=== PATIENT | female | born 1990 | race Caucasian/White ===

== ENCOUNTER 2016-10-18 20:56 | Emergency (ER) | payer OTHER ==
[2016-10-19] MEDS ORDERED: ACETAMINOPHEN 325 MG TABLET ONE
[2016-10-19] MEDS ORDERED: IBUPROFEN 600 MG TABLET ONE
[2016-10-19] MEDS ORDERED: DIPHTH,PERTUSS(ACELL),TET VAC 0.5 ML VIAL IM V ONE
--- NOTE | 2016-10-19 08:15 | RAD ---
Exam: Three-view left toe COMPARISON: None INDICATION: Dropped jar on left big toe. FINDINGS: PA, lateral and oblique views of left great toe were obtained. No apparent soft tissue swelling. Normal bone mineralization. Alignment is normal. No fracture is identified. Regional osseous structures are unremarkable. IMPRESSION: No acute osseous abnormality in the left great toe.
== END 2016-10-19 08:41 | disposition home or self-care (01) ==
LOC: ED 20:56
DX: S90.212A Contusion of left great toe with damage to nail, initial encounter (principal); Z23 Encounter for immunization; W20.8XXA Other cause of strike by thrown, projected or falling object, initial encounter; Y92.9 Unspecified place or not applicable
CPT/HCPCS: 90715; 73660; 90471; 99283 ×2; A9270 ×2